=== PATIENT | female | born 1935 | race Caucasian/White ===

== ENCOUNTER 2016-11-10 12:16 | Inpatient (IN) ==
[2016-11-10] MEDS ORDERED: 0.9 % Sodium Chloride 1,000 ML IVC ONE (12:23)
--- NOTE | 2016-11-10 12:43 | Emergency Department Note ---
Disposition Clinical Impression: Dysphagia Qualifiers: Dysphagia type: unspecified Qualified Code(s): R13.10 - Dysphagia, unspecified Disposition: Admitted As Inpatient Condition: Good Referrals: Jose Shepherd DO [Primary Care Provider] - Forms: Work/School Release, ED Satisfaction Letter General Adult HPI - General Chief complaint: ED General Medical Stated complaint: dysphagia Time Seen by Provider: 11/10/16 12:19 Source: EMS Mode of arrival: EMS Limitations: no limitations Nursing Notes Reviewed: Yes Vital Signs Reviewed: Yes - History of Present Illness HPI Narrative: 81-year-old female presents to the ER with a chief complaint of dysphagia. Patient reports that for the last 3 weeks the nursing facility she has been unable to keep solids. Report from there shows that she has also pounds in the last 3 weeks. They also report decreased urine output and that for the last 2 days she has been unable to take her medications. Patient reports that the last thing she ate was yesterday evening. Reports that she is now choking on liquids. Reports a history of esophageal stricture in the past requiring dilation roughly 1-1/2 years ago. Patient was unable to be seen by her GI for the next 4-6 weeks. Sent to the ER for evaluation. Pt Subjective Complaint: Dysphagia Onset (ago): week(s) (3) Radiation: non-radiation Pain Scale: 0 Improves with: nothing Worsens with: nothing Associated symptoms: Reports: denies other symptoms Treatments Prior to Arrival: none - Related Data Home Medications Medication Instructions Recorded Confirmed Atenolol [Tenormin] 25 mg PO TID 11/10/16 11/10/16 Atorvastatin Calcium [Lipitor] 20 mg PO DAILY 11/10/16 11/10/16 Baclofen [Lioresal] 10 mg PO BID 11/10/16 11/10/16 Citalopram [CeleXA] 20 mg PO DAILY 11/10/16 11/10/16 Clopidogrel [Plavix] 75 mg PO DAILY 11/10/16 11/10/16 Dextran 70/Hypromellose 1 drop BOTH EYES BID 11/10/16 11/10/16 [Artificial Tears] Docusate Sodium [Dok] 100 mg PO BID PRN 11/10/16 11/10/16 HYDROcodone/Acet 5/325 mg [[place] 1 tab PO 1300 PRN 11/10/16 11/10/16 5-325 mg] Hydrochlorothiazide 25 mg PO DAILY 11/10/16 11/10/16 LORazepam [Ativan] 0.5 mg PO DAILY 11/10/16 11/10/16 Lacri-Lube [Lacri-lube] 1 appl LEFT EYE HS 11/10/16 11/10/16 Losartan Potassium [Cozaar] 100 mg PO DAILY 11/10/16 11/10/16 Potassium Chloride [Klor-Con 10] 10 meq PO DAILY 11/10/16 11/10/16 Ranitidine HCl [Acid Senior Report Developer] 150 mg PO DAILY 11/10/16 11/10/16 Allergies Allergy/AdvReac Type Severity Reaction Status Date / Time No Known Allergies Allergy Verified 11/10/16 14:45 All systems ED: reviewed and negative except as stated. Constitutional: Denies: fever ENT ED: Reports: dysphagia Cardiovascular: Denies: chest pain Respiratory: Denies: cough, dyspnea Gastrointestinal: Denies: abdominal pain, nausea, vomiting, diarrhea Past Medical History - Past Medical History Attestation: Yes The following information was validated with the patient. Source: patient Medical history: Reports: CVA, hypertension Surgical history: Reports: non-contributory - Social History Smoking Status: Former smoker Smokeless Tobacco Status: No Alcohol use: Reports: none Drug use: Reports: none Physical Exam - General Limitations: no limitations General appearance: alert, in no apparent distress - Head Head exam: atraumatic, normocephalic, normal inspection - Eye Eye exam: Present: normal appearance, PERRL, EOMI - ENT ENT exam: normal exam, normal oropharynx, mucous membranes dry - Expanded ENT Exam External ear exam: Present: normal external inspection Mouth exam: Present: normal external inspection Teeth exam: Present: normal inspection Throat exam: Present: normal inspection - Neck Neck exam: Present: normal inspection, full ROM, trachea midline - Chest Chest inspection: Present: normal inspection, symmetric chest wall rise - Respiratory Respiratory exam: Present: normal lung sounds bilaterally - Cardiovascular Cardiovascular exam: Present: regular rate, normal rhythm, normal heart sounds - Abdominal Exam Abdominal exam: Present: soft, Non-Tender. Absent: tenderness, guarding, rigidity - Extremities Exam Extremities exam: Present: normal inspection, full ROM - Expanded Upper Extremity Exam Shoulder exam: Present: normal inspection, full ROM Arm exam: Present: normal inspection, full ROM Elbow exam: Present: normal inspection, full ROM Forearm/Wrist exam: Present: normal inspection, full ROM Hand exam: Present: normal inspection, full ROM - Expanded Lower Extremity Exam Hip/Pelvis exam: Present: normal inspection, full ROM Upper leg exam: Present: normal inspection, full ROM Knee exam: Present: normal inspection, full ROM Lower leg exam: Present: normal inspection, full ROM Ankle exam: Present: normal inspection, full ROM Foot/toe exam: Present: normal inspection, full ROM - Back Exam Back exam: Present: normal inspection - Neurological Exam Neurological exam: Present: alert - Expanded Neurological Exam Coma Scale Eye Opening: Spontaneous Coma Scale Motor Response: Obeys Commands Coma Scale Verbal Response: Oriented Coma Scale Total: 15 - Psychiatric Psychiatric exam: Present: normal affect, normal mood - Skin Skin exam: Present: warm, dry, intact, normal color Course Course Narrative: Patient seen and examined. Vital signs reviewed. She appears dry on exam. We will get some basic labs and give her some IV fluids. Disposition pending. - Consultations Consultation #1: I spoke with with the on-call clinical rehab liaison concerning this patient. Patient is being admitted to the hospitalist service. Vital Signs Temperature 0 F L 11/10/16 12:20 Pulse Rate 64 11/10/16 12:20 Respiratory Rate 12 11/10/16 12:20 Blood Pressure 236/85 11/10/16 12:20 O2 Sat by Pulse Oximetry 96 11/10/16 12:20 Temperature 0 F L 11/10/16 12:20 Pulse Rate 68 11/10/16 16:09 Respiratory Rate 12 11/10/16 16:09 Blood Pressure 194/59 11/10/16 16:09 O2 Sat by Pulse Oximetry 94 L 11/10/16 16:09 Oxygen Delivery Oxygen Delivery Room Air Medical Decision Making - MDM Narrative Medical decision making narrative: 81-year-old female presents to the ER due to decreased oral intake, dysphagia and weight loss. History of esophageal strictures in the past requiring dilation. She appears dry on exam with a slight hyponatremia of 147. Patient was started on IV fluids and GI was consulted in the ER and patient admitted to the hospitalist service. - Lab Data Lab results reviewed: Yes I reviewed the patient's lab results. Result diagrams: 11/10/16 13:17 11/10/16 13:17 Lab Results 0311/10/16 11/10/16 Range/Units 13:17 13:17 13:17 WBC 6.6 (4.3-11.1) K/mcL RBC 4.09 (3.82-4.97) M/mcL Hgb 12.5 (11.5-15.4) g/dL Hct 37.8 (35.3-44.9) % MCV 92.4 (83.0-100.0) fL MCH 30.6 (28.0-33.3) pg MCHC 33.1 (31.6-35.5) g/dL RDW 12.9 (11.5-14.5) % Plt Count 138 L (140-400) K/mcL MPV 11.9 (9.4-12.4) fL Immature Gran % 0.8 (0-4) % Seg Neutrophils % 80.7 % Lymphocytes % 10.6 % Monocytes % 6.5 % Eosinophils % 1.2 % Basophils % 0.2 % Neutrophils # 5.3 (1.6-8.9) K/mcL Lymphocytes # 0.7 (0.6-4.6) K/mcL Monocytes # 0.4 (0.0-1.3) K/mcL Eosinophils # 0.1 (0.0-0.6) K/mcL Basophils # 0.0 (0.0-0.2) K/mcL Immature Plt Fraction 10.1 H (1.1-6.1) % PT 12.4 H (9.4-12.1) Seconds INR 1.1 Sodium 147 H (136-145) mEq/L Potassium 4.1 (3.5-4.5) mEq/L Chloride 110 H (98-109) mEq/L Carbon Dioxide 30 H (19-29) mEq/L BUN 27 H (7-20) mg/dL Creatinine 0.93 (0.57-1.11) mg/dL Est GFR ( Amer) > 60 (> 60) Est GFR (Non-Af Amer) 58 L (> 60) BUN/Creatinine Ratio 29 H (6-26) Glucose 101 H (70-99) mg/dL Calculated Osmolality 309 H (280-300) Calcium 8.9 (8.6-10.8) mg/dL Urine Color (Yellow) Urine Clarity (Clear) Urine pH (5.0-8.0) pH Units Ur Specific [place] (1.010-1.025) Urine Protein (Neg-Trace) mg/dL Urine Glucose (UA) (Normal) mg/dL Urine Ketones (Negative) mg/dL Urine Blood (Negative) Urine Nitrite (Negative) Urine Bilirubin (Negative) Urine Urobilinogen (Normal) mg/dL Ur Leukocyte Esterase (Negative) Urine Microscopic RBC (0-3) per hpf Urine Microscopic WBC (0-3) per hpf Ur Squamous Epith Cells (None-Few) per lpf Urine Bacteria (None-Few) per hpf Ur Culture Indicated? (NO) 11/10/16 Range/Units 13:57 WBC (4.3-11.1) K/mcL RBC (3.82-4.97) M/mcL Hgb (11.5-15.4) g/dL Hct (35.3-44.9) % MCV (83.0-100.0) fL MCH (28.0-33.3) pg MCHC (31.6-35.5) g/dL RDW (11.5-14.5) % Plt Count (140-400) K/mcL MPV (9.4-12.4) fL Immature Gran % (0-4) % Seg Neutrophils % % Lymphocytes % % Monocytes % % Eosinophils % % Basophils % % Neutrophils # (1.6-8.9) K/mcL Lymphocytes # (0.6-4.6) K/mcL Monocytes # (0.0-1.3) K/mcL Eosinophils # (0.0-0.6) K/mcL Basophils # (0.0-0.2) K/mcL Immature Plt Fraction (1.1-6.1) % PT (9.4-12.1) Seconds INR Sodium (136-145) mEq/L Potassium (3.5-4.5) mEq/L Chloride (98-109) mEq/L Carbon Dioxide (19-29) mEq/L BUN (7-20) mg/dL Creatinine (0.57-1.11) mg/dL Est GFR ( Amer) (> 60) Est GFR (Non-Af Amer) (> 60) BUN/Creatinine Ratio (6-26) Glucose (70-99) mg/dL Calculated Osmolality (280-300) Calcium (8.6-10.8) mg/dL Urine Color Yellow (Yellow) Urine Clarity Clear (Clear) Urine pH 6.0 (5.0-8.0) pH Units Ur Specific [place] 1.019 (1.010-1.025) Urine Protein Negative (Neg-Trace) mg/dL Urine Glucose (UA) Normal (Normal) mg/dL Urine Ketones Trace H (Negative) mg/dL Urine Blood Small H (Negative) Urine Nitrite Negative (Negative) Urine Bilirubin Negative (Negative) Urine Urobilinogen Normal (Normal) mg/dL Ur Leukocyte Esterase Negative (Negative) Urine Microscopic RBC 0-3 (0-3) per hpf Urine Microscopic WBC 0-3 (0-3) per hpf Ur Squamous Epith Cells Few (None-Few) per lpf Urine Bacteria Few (None-Few) per hpf Ur Culture Indicated? NO (NO) S.B.A.R. - S.B.A.David Situation: Demographics, MOA Background: Presenting Complaint, Relevant PMH, Meds, & Allergies Assessment: Vital Signs, Course and respsone to treatment, Exam Concerns, Patient/Family Expectation, Pertinant Lab Results, Outstanding Labs Recommendation: Barrier(s) to disposition, Recommendation based on pending studies, treatments, or consults S.B.A.RLindsey Report Given to: Prachi WillisBLeory Repor Time: 16:29 Attestation Statement - Attestation Attestation: Patient was seen with resident physician. I reviewed the history, physical, assessment and plan, and agree with the findings. I also personally evaluated this patient and had [id number] time with this patient. 81-year-old female presents [facility] the emergency department from [facility] with chief complaint of cannot hear drink. Basically patient's loss proximal 17 pounds in the last 2 weeks or so. She has a history of esophageal stricture and states that she has had trouble swallowing solids and now liquids. She really just cannot get anything down which is prompted her trip to the emergency department today she denies nausea vomiting or diarrhea just weight loss and she says she feels dehydrated. Denies other complaints at this time. On examination vital signs unremarkable. ENT patient appears dehydrated with dry mucous membranes. Heart regular rhythm and rate. Lungs clear abdomen soft and nontender. Extremities are unremarkable. Neurologically patient is intact. We will check basic labs and rehydrate patient and will get admitted for IV hydration and GI evaluation with possible stricture treatment. Hospitalist will be notified once labs are back. Agree with resident physician assessment and plan.
[2016-11-10 13:23] LABS: Basophils % 0.2 %; Eosinophils # 0.1 K/mcL (0.0-0.6); Eosinophils % 1.2 %; Hematocrit 37.8 % (35.3-44.9); Hemoglobin 12.5 g/dL (11.5-15.4); Immature Granulocytes % 0.8 % (0-4); Immature Platelets 10.1 % (1.1-6.1); Lymphocytes # 0.7 K/mcL (0.6-4.6); Lymphocytes % 10.6 %; Mean Corpuscular HGB Conc 33.1 g/dL (31.6-35.5); Mean Corpuscular Hemoglobin 30.6 pg (28.0-33.3); Mean Corpuscular Volume 92.4 fL (83.0-100.0); Mean Platelet Volume 11.9 fL (9.4-12.4); Monocytes # 0.4 K/mcL (0.0-1.3); Monocytes % 6.5 %; Neutrophils # 5.3 K/mcL (1.6-8.9); Platelet Count 138 K/mcL (140-400); Red Blood Count 4.09 M/mcL (3.82-4.97); Red Cell Distribution Width 12.9 % (11.5-14.5); Segmented Neutrophils % 80.7 %
[2016-11-10 13:31] LABS: INR 1.1; Prothrombin Time 12.4 Seconds (9.4-12.1)
[2016-11-10 13:35] LABS: BUN/Creatinine Ratio 29 (6-26); Blood Urea Nitrogen 27 mg/dL (7-20); Calcium 8.9 mg/dL (8.6-10.8); Carbon Dioxide 30 mEq/L (19-29); Chloride 110 mEq/L (98-109); Glucose 101 mg/dL (70-99); Osmolality,Calculated 309 (280-300); Potassium 4.1 mEq/L (3.5-4.5); Sodium 147 mEq/L (136-145); eGFR For African Americans > 60 (> 60); eGFR For Non-African Americans 58 (> 60)
[2016-11-10 14:05] LABS: Bilirubin,Urine Negative (Negative); Blood,Urine Small (Negative); Clarity,Urine Clear (Clear); Color,Urine Yellow (Yellow); Glucose,Urine (UA) Normal (Normal); Ketones,Urine Trace mg/dL (Negative); Leukocyte Esterase,Urine Negative (Negative); Nitrite,Urine Negative (Negative); Protein,Urine Negative (Neg-Trace); Specific Gravity,Urine 1.019 (1.010-1.025); Urobilinogen,Urine Normal (Normal)
[2016-11-10 14:06] LABS: Bacteria,Urine Few per hpf (None-Few); RBC,Urine 0-3 per hpf (0-3); Squamous Epithelial Cell,Urine Few per lpf (None-Few); WBC,Urine 0-3 per hpf (0-3)
[2016-11-10] MEDS ORDERED: Ondansetron 4 MG/2 ML VIAL IVP PRN (20:37)
[2016-11-10] MEDS ORDERED: Naloxone 0.4 MG/ML INJ IVP PRN (20:37)
--- NOTE | 2016-11-10 20:37 | Internal Med History&Physical ---
Date of Encounter: 11/10/16 Time of Encounter: 20:15 Assessment and Plan (1) History of esophageal stricture Current visit: Yes Status: Acute Patient has history of esophageal strictures, having undergone 2 prior esophageal dilations with Dr. Kent. Current dysphagia and inability to swallow likely due to return of esophageal stricture. Nothing by mouth GI prophylaxis with pantoprazole and patient able to take home ranitidine Zofran as needed for nausea Dr. Kent has been consulted by ER for assistance in management of patient dysphagia (2) Dehydration Current visit: Yes Status: Acute Patient dehydration due to decreased by mouth intake over the past few days, given 1 L fluid in the emergency department, will continue normal saline at 100 mL an hour Allow patient to take by mouth when able (3) Hypertension Current visit: Yes Status: Acute Patient on several antihypertensive medications including atenolol, losartan, and hydrochlorothiazide but has been unable take medications last few days because of dysphagia and difficulty swallowing. Has been having extremely high blood pressures while in hospital. We will hold patient's oral antihypertensive medications until dysphagia resolved 5 mg hydralazine IV when necessary for systolic blood pressure above 190 until patient able to take better by mouth Qualifiers: Hypertension type: essential hypertension Qualified Code(s): I10 - Essential (primary) hypertension (4) Dysphagia Current visit: Yes Status: Acute Patient dysphagia from esophageal strictures Plan as above Qualifiers: Dysphagia type: unspecified Qualified Code(s): R13.10 - Dysphagia, unspecified (5) History of CVA (cerebrovascular accident) Current visit: Yes Status: Acute Patient has residual left-sided weakness and contractures No acute deficits at this time (6) DVT prophylaxis Current visit: Yes Status: Acute Patient placed on 5000 units heparin 3 times a day Internal Medicine - H&P: HPI Chief complaint: Progressive difficulty swallowing for 3 weeks Admitted From: Long-term Nursing Facility Plans for Post Hospital Care: Transfer [facility] History of present illness: Ms. Uriostegui is a 81 year old female with significant medical history for esophageal strictures (w/ 2 prior dilations, last one 2 years ago), prior CVA ( residual left sided paresis, htn, and DVT who was brought to [facility] because she has been having increased dysphagia for 3 weeks. She states that it began 3 weeks ago with some discomfort with swallowing and has progressed to being unable to swallow solid foods. She states that when she tries, she has some discomfort and immediate regurgitation of the food. She denies stomach contents or acid being present in her regurgitation. She states that she is still able to drink milk-shakes, but does not want to drink water because it makes her nauseous. She states that she has had a 30 lb weight loss in the past 3 weeks. She does report some photophobia, but did have very elevated blood pressures at presentation (likely due to not being able to take her medications) that improved with fluids. She denies feeling ill, fever/chills, confusion, abdominal pain, diarrhea, constipation, chest pain, weakness (other than her residual weakness from the CVA), headaches, hematachezia, melena, neck pain, dyuria, or hemauria. Past Med Surg Social Fam HX - Past Medical History Medical history: CVA, hypertension Psychiatric history: no psych history - Past Surgical History Surgical History: non-contributory - Social History Smoking Status: Former smoker Smokeless Tobacco Status: No Alcohol use: none Drug use: none - Family History Father Living Status: Hx Family Cancer: Yes (lung) Sister Living Status: Hx Family Cancer: Yes (breast) Internal Medicine - H&P: Meds Atenolol [Tenormin] 25 mg PO TID 11/10/16 [History] Atorvastatin Calcium [Lipitor] 20 mg PO DAILY 11/10/16 [History] Baclofen [Lioresal] 10 mg PO BID 11/10/16 [History] Citalopram [CeleXA] 20 mg PO DAILY 11/10/16 [History] Clopidogrel [Plavix] 75 mg PO DAILY 11/10/16 [History] Dextran 70/Hypromellose [Artificial Tears] 1 drop BOTH EYES BID 11/10/16 [ History] Docusate Sodium [Dok] 100 mg PO BID PRN 11/10/16 [History] HYDROcodone/Acet 5/325 mg [[place] 5-325 mg] 1 tab PO 1300 PRN 11/10/16 [History] Hydrochlorothiazide 25 mg PO DAILY 11/10/16 [History] LORazepam [Ativan] 0.5 mg PO DAILY 11/10/16 [History] Lacri-Lube [Lacri-lube] 1 appl LEFT EYE HS 11/10/16 [History] Losartan Potassium [Cozaar] 100 mg PO DAILY 11/10/16 [History] Potassium Chloride [Klor-Con 10] 10 meq PO DAILY 11/10/16 [History] Ranitidine HCl [Acid Fruit Or Nut Picker] 150 mg PO DAILY 11/10/16 [History] Allergies No Known Allergies Allergy (Verified 11/10/16 14:45) - Constitutional Constitutional: weight loss, no chills, no fatigue, no fever(s), no night sweats , no weakness - EENT Eyes: photophobia, no change in vision, no diplopia, no discharge, no pain Nose, mouth and throat: as per HPI, dry mouth, dysphagia, no nasal discharge, no neck pain, no sore throat - Cardiovascular Cardiovascular ROS IM: no chest pain, no diaphoresis, no dyspnea, no lightheadedness, no palpitations, no syncope - Respiratory Respiratory: no cough, no dyspnea, no wheezing, no excessive phlegm production - Gastrointestinal Gastrointestinal: as per HPI, dysphagia, vomiting (regurgitation), no abdominal pain, no constipation, no diarrhea, no hematemesis, no hematochezia, no melena, no nausea - Genitourinary Genitourinary: no change in urinary stream, no dysuria, no flank pain, no hematuria - Musculoskeletal Musculoskeletal ROS IM: muscle weakness (from residul CVA), no numbness, no tingling - Integumentary Integumentary IM: no rash, no unusual bruising - Neurological Neurological ROS: focal weakness (from residual CVA), no confusion, no convulsions, no numbness, no tingling, no tremor(s) - Hematologic/Lymphatic Hematologic/Lymphatic: no easy bruising - Constitutional Vitals: Temp Pulse Resp BP Pulse Ox 98.7 F 70 18 120/68 94 L 11/10/16 19:36 11/10/16 19:36 11/10/16 19:36 11/10/16 19:36 11/10/16 19:36 Exam: General: Cooperative, pleasant, no acute distress, alert and oriented 3, answers questions appropriately Head: Normocephalic, atraumatic Eye: Conjunctiva pink, sclera anicteric, EOMI, PERRL Neck: Supple, trachea midline, mucosa dry Respiratory: No accessory muscle usage, clear to auscultation bilaterally, no wheezes/rhonchi/rales appreciated Cardiovascular: Regular rate and rhythm, S1 and S2 present, no murmurs/rubs/ gallops/clicks appreciated GI/abdominal: Nondistended, nontender, soft, normal bowel sounds, no peritoneal signs Extremities: No calf tenderness, noncyanotic, no pedal edema appreciated, warm, lower extremity pulses palpable and symmetrical, left extremities contracted from prior CVA Neurological: Alert and oriented 3, mild left-sided facial droop, 3/5 strength in left lower extremity, 4/5 strength in left upper extremity, chronic contractures in left extremities Skin: Dry, intact, normal color Internal Med - H&P Results - Labs CBC & Chem 7: 11/10/16 13:17 11/10/16 13:17 - Impressions Impressions Chest X-Ray 11/11/16 01:03 IMPRESSION: 1. No active pulmonary disease. 2. Stable cardiomegaly without overt failure. D/ / Celio Diego MD / Celio Diego MD Interpreting Provider: Celio Diego MD
[2016-11-10] MEDS: 0.9 % Sodium Chloride 1,000 ML IVC SCH (22:07)
[2016-11-10] MEDS: *HR* Heparin 5,000 UNIT/ML VIAL SQ SCH (22:08)
[2016-11-11] MEDS: *HR* Heparin 5,000 UNIT/ML VIAL SQ SCH ×3 (05:06→20:18)
[2016-11-11] MEDS ORDERED: Pantoprazole 40 MG VIAL IVP SCH (06:30)
[2016-11-11 07:21] LABS: Basophils % 0.3 %; Eosinophils # 0.1 K/mcL (0.0-0.6); Eosinophils % 1.7 %; Hematocrit 40.1 % (35.3-44.9); Hemoglobin 13.3 g/dL (11.5-15.4); Immature Granulocytes % 0.9 % (0-4); Lymphocytes # 0.8 K/mcL (0.6-4.6); Mean Corpuscular HGB Conc 33.2 g/dL (31.6-35.5); Mean Corpuscular Hemoglobin 30.6 pg (28.0-33.3); Mean Corpuscular Volume 92.4 fL (83.0-100.0); Monocytes # 0.4 K/mcL (0.0-1.3); Monocytes % 5.8 %; Neutrophils # 6.2 K/mcL (1.6-8.9); Platelet Count 131 K/mcL (140-400); Red Blood Count 4.34 M/mcL (3.82-4.97); Red Cell Distribution Width 12.9 % (11.5-14.5); Segmented Neutrophils % 80.3 %
[2016-11-11 07:47] LABS: Alanine Aminotransferase 12 Units/L (0-55); Albumin 3.3 g/dL (3.5-5.0); Albumin/Globulin Ratio 1.1 (1.1-2.2); Alkaline Phosphatase 50 Units/L (38-126); Aspartate Amino Transferase 21 Units/L (5-34); BUN/Creatinine Ratio 25 (6-26); Blood Urea Nitrogen 19 mg/dL (7-20); Calcium 8.5 mg/dL (8.6-10.8); Carbon Dioxide 24 mEq/L (19-29); Chloride 109 mEq/L (98-109); Glucose 100 mg/dL (70-99); Magnesium 0.8 mg/dL (1.6-2.6); Osmolality,Calculated 300 (280-300); Phosphorous 2.3 mg/dL (2.3-4.7); Potassium 3.3 mEq/L (3.5-4.5); Sodium 144 mEq/L (136-145); Total Protein 6.3 g/dL (6.0-8.3); eGFR For African Americans > 60 (> 60); eGFR For Non-African Americans > 60 (> 60)
[2016-11-11] MEDS: 0.9 % Sodium Chloride 1,000 ML IVC SCH ×2 (09:37→20:19)
--- NOTE | 2016-11-11 11:23 | Gastroenterology Consult Note ---
<Wiliam Brock Veto - Last Filed: 11/11/16 11:21> Date of Encounter: 11/11/16 Time of Encounter: 10:00 - Assessment and plan (1) Dysphagia Current Visit: Yes Status: Acute Assessment and plan: Likely secondary to esophageal stricture. Plan for EGD with possible dilation. Keep NPO. Qualifiers: Dysphagia type: unspecified Qualified Code(s): R13.10 - Dysphagia, unspecified (2) History of esophageal stricture Current Visit: Yes Status: Acute Assessment and plan: Last EGD 01/29/[address] Kent with emperic dilation with mild resistance at 54 Fr. (3) History of CVA (cerebrovascular accident) Current Visit: Yes Status: Acute - Time Spent With Patient Total time spent is greater than 50% in coordination of care (as documented) at patient's floor/unit and/or counseling patient: GI History of Present Illness - Data of Consult Patient: known to practice within the last 3 years Consult date: 11/11/16 Requesting Physician: Chaim Callahan DO - Consult Narrative Reason for consult: dysphagia History of present illness: Ms. Uriostegui is a 81 year old female with PMHx of CVA, HTN, and esophageal strictures (2 prior dilations, last one 2 years ago) who was brought to the ED with dysphagia with solids for the past 3 weeks. She states she is unable to swallow solids, when she tries she has discomfort and immediate reguritation of the food. She is not having difficulties with liquids. She denies fever, chills , chest pain, abdominal pain, constipation, diarrhea, melena, or hematochezia. Procedures: EGD 01/29/2015 Dr. Kent: Emperic dilation with mild resistance at 54 Fr. NSAIDs: None Anticoagulation: Plavix Past Med Surg Social Fam HX - Past Medical History Medical history: CVA, hypertension Psychiatric history: no psych history - Past Surgical History Surgical History: non-contributory - Social History Smoking Status: Former smoker Smokeless Tobacco Status: No Alcohol use: none Drug use: none - Family History Father Living Status: Hx Family Cancer: Yes (lung) Sister Living Status: Hx Family Cancer: Yes (breast) - Gastrointestinal Gastrointestinal: Present: as per HPI - Constitutional Constitutional: as per HPI - EENT Eyes: as per HPI Ears: Present: as per HPI Nose, mouth and throat: Present: as per HPI - Cardiovascular Cardiovascular ROS: Present: as per HPI - Respiratory Respiratory IM: Present: as per HPI - Genitourinary Genitourinary: Absent: change in color, Urinary frequency - Neurological ROS Neurological GI: Present: as per HPI - Hematologic/Lymphatic Hematologic/Lymphatic pediatric: Present: as per HPI - Musculoskeletal Musculoskeletal ROS GI: Present: as per HPI - Integumentary Integumentary GI: Present: as per HPI - Psychiatric ROS Psychiatric GI: Present: as per HPI - Endocrine Endocrine IM: Present: as per HPI - Constitutional Vitals: Temp Pulse Resp BP Pulse Ox 98.2 F 73 17 180/98 95 11/11/16 10:00 11/11/16 10:00 11/11/16 10:00 11/11/16 10:00 11/11/16 10:00 General appearance: Present: cooperative, A&O X 3, no acute distress, answers questions appropriately - Head Head exam: Present: atraumatic, normocephalic - Eye Eye exam: Present: normal appearance, sclera anicteric - ENT ENT exam: Present: mucous membranes dry - Neck Neck exam general surgery: Present: normal inspection, trachea midline - Respiratory Respiratory exam: Present: CTAB. Absent: rales, rhonchi - Cardiovascular Cardiovascular exam: Present: RRR, +S1, +S2 - GI/Abdominal GI/Abdominal exam: Present: soft, no peritoneal signs. Absent: distended, firm , guarding, tenderness - Rectal Rectal exam: Present: deferred - Extremities Exam Extremities exam: Present: warm - Neurological Exam Neurological exam: Present: no focal deficits - Psychiatric Psychiatric exam: Present: normal affect, normal mood - Skin Skin exam: Present: dry, intact, normal color, warm Results - Labs CBC & Chem 7: 11/11/16 06:49 11/11/16 06:49 Labs: Last Result Calcium 8.5 mg/dL (8.6-10.8) L 11/11/16 06:49 Entire Visit Hgb 13.3 g/dL (11.5-15.4) 11/11/16 06:49 Hct 40.1 % (35.3-44.9) 11/11/16 06:49 PT 12.4 Seconds (9.4-12.1) H 11/10/16 13:17 Total Bilirubin 1.0 mg/dL (0.2-1.2) 11/11/16 06:49 AST 21 Units/L (5-34) 11/11/16 06:49 ALT 12 Units/L (0-55) 11/11/16 06:49 - ABG ABG results: PT/INR, D-dimer PT 12.4 Seconds (9.4-12.1) H 11/10/16 13:17 - Impressions Impressions Chest X-Ray 11/11/16 01:03 IMPRESSION: 1. No active pulmonary disease. 2. Stable cardiomegaly without overt failure. D/ / Celio Diego MD / Celio Diego MD Interpreting Provider: Celio Diego MD Consult Discharge Plan - Plan Referrals: Jose Shepherd DO [Primary Care Provider] - (patient will follow up with ECF PCP) <Jarad Kent - Last Filed: 11/11/16 17:57> Time of Encounter: 17:00 - Time Spent With Patient Total time spent is greater than 50% in coordination of care (as documented) at patient's floor/unit and/or counseling patient: GI History of Present Illness - Data of Consult Requesting Physician: Chaim Callahan DO - Consult Narrative History of present illness: Ms. Uriostegui is a 81 year old female - Constitutional Vitals: Temp Pulse Resp BP Pulse Ox 99.3 F 77 16 176/67 95 11/11/16 17:50 11/11/16 17:50 11/11/16 17:50 11/11/16 17:50 11/11/16 17:50 Results - Labs CBC & Chem 7: 11/11/16 06:49 11/11/16 06:49 Labs: Last Result Calcium 8.5 mg/dL (8.6-10.8) L 11/11/16 06:49 Entire Visit Hgb 13.3 g/dL (11.5-15.4) 11/11/16 06:49 Hct 40.1 % (35.3-44.9) 11/11/16 06:49 PT 12.4 Seconds (9.4-12.1) H 11/10/16 13:17 Total Bilirubin 1.0 mg/dL (0.2-1.2) 11/11/16 06:49 AST 21 Units/L (5-34) 11/11/16 06:49 ALT 12 Units/L (0-55) 11/11/16 06:49 - ABG ABG results: PT/INR, D-dimer PT 12.4 Seconds (9.4-12.1) H 11/10/16 13:17 - Impressions Impressions Chest X-Ray 11/11/16 01:03
--- NOTE | 2016-11-11 14:39 | Internal Med Progress Note ---
Date of Encounter: 11/11/16 Time of Encounter: 14:35 - Assessment and plan (1) Dysphagia Current Visit: Yes Status: Acute Assessment and plan: h/o esophageal stricture with dilatation in daria past. scheduled for EGD either today or tomorrow. Currently nothing by mouth for not being able to swallow. We will continue IV fluids for now. We will follow EGD results in GI recommendations. Qualifiers: Dysphagia type: unspecified Qualified Code(s): R13.10 - Dysphagia, unspecified (2) History of esophageal stricture Current Visit: Yes Status: Chronic (3) History of CVA (cerebrovascular accident) Current Visit: Yes Status: Acute (4) Hypertension Current Visit: Yes Status: Acute Assessment and plan: Blood pressure elevated due to not being able to take oral medications. We will add hydralazine 10 mg IV when necessary for systolic blood pressure more than 160. Continue to monitor blood pressure. Qualifiers: Hypertension type: essential hypertension Qualified Code(s): I10 - Essential (primary) hypertension - Time Spent With Patient 25 - 35 minutes - Subjective Interval history: Patient seen at the bedside, admitted for dysphagia. Complaining of difficulty in swallowing, refuses all her by mouth medications. Has a history of esophageal stricture and dilatation in the past. GI has been consulted, planned for EGD today. - Constitutional Vitals: Temp Pulse Resp BP Pulse Ox 98.2 F 73 17 180/98 95 11/11/16 10:00 11/11/16 10:00 11/11/16 10:00 11/11/16 10:00 11/11/16 10:00 General appearance: Present: A&O X 3, no acute distress Exam: General: Cooperative, pleasant, no acute distress, alert and oriented 3, answers questions appropriately Head: Normocephalic, atraumatic Eye: Conjunctiva pink, sclera anicteric, EOMI, PERRL Neck: Supple, trachea midline, mucosa dry Respiratory: No accessory muscle usage, clear to auscultation bilaterally, no wheezes/rhonchi/rales appreciated Cardiovascular: Regular rate and rhythm, S1 and S2 present, no murmurs/rubs/ gallops/clicks appreciated GI/abdominal: Nondistended, nontender, soft, normal bowel sounds, no peritoneal signs Extremities: No calf tenderness, noncyanotic, no pedal edema appreciated, warm, lower extremity pulses palpable and symmetrical, left extremities contracted from prior CVA Neurological: Alert and oriented 3, no focal neuro defecits Skin: Dry, intact, normal color Internal Medicine: Result - Labs CBC & Chem 7: 11/11/16 06:49 11/11/16 06:49 Labs: Short CBC 11/11/16 Range/Units 06:49 WBC 7.7 (4.3-11.1) K/mcL Hgb 13.3 (11.5-15.4) g/dL Hct 40.1 (35.3-44.9) % Plt Count 131 L (140-400) K/mcL Neutrophils # 6.2 (1.6-8.9) K/mcL BMP 11/11/16 06:49 Sodium 144 Potassium 3.3 L Chloride 109 Carbon Dioxide 24 BUN 19 Creatinine 0.76 Glucose 100 H Calcium 8.5 L Liver Function 11/11/16 Range/Units 06:49 Total Bilirubin 1.0 (0.2-1.2) mg/dL AST 21 (5-34) Units/L ALT 12 (0-55) Units/L Alkaline Phosphatase 50 (38-126) Units/L Albumin 3.3 L (3.5-5.0) g/dL - ABG Interpretation ABG results: PT/INR, D-dimer PT 12.4 Seconds (9.4-12.1) H 11/10/16 13:17 - Impressions Impressions Chest X-Ray 11/11/16 01:03 IMPRESSION: 1. No active pulmonary disease. 2. Stable cardiomegaly without overt failure. D/ / Celio Diego MD / Celio Diego MD Interpreting Provider: Celio Diego MD - VTE Reasons for not Prescribing Prophylaxis: Treatment not Indicated - Low risk for VTE Consult Discharge Plan - Plan Referrals: Jose Shepherd DO [Primary Care Provider] - (patient will follow up with ECF PCP)
[2016-11-11] MEDS ORDERED: *HR* Midazolam HCl 5 MG/5 ML VIAL IVP ONE (17:44)
[2016-11-11] MEDS ORDERED: *HR* FentaNYL (PF) 100 MCG/2 ML VIAL ONE (17:45)
[2016-11-11] MEDS ORDERED: *HR* FentaNYL (PF) 100 MCG/2 ML VIAL IVP PRN (17:58)
[2016-11-11] MEDS ORDERED: *HR* Midazolam HCl 5 MG/5 ML VIAL IVP PRN (17:58)
[2016-11-11] MEDS ORDERED: Tetracaine/Benzocaine/Butamben 200MG/SPRAY (100SPY/BOT) MM ONE (17:58)
[2016-11-11] MEDS ORDERED: Simethicone 40 MG/0.6 ML MLS IR ONE (17:58)
[2016-11-11] MEDS ORDERED: 0.9 % Sodium Chloride 1,000 ML IVC SCH (18:15)
[2016-11-11] MEDS: Pantoprazole 40 MG VIAL IVP SCH (20:18)
[2016-11-11] MEDS: Artificial Tears SOLN 15 ML BOTTLE BOTH EYES SCH (20:20)
[2016-11-12] MEDS: *HR* Heparin 5,000 UNIT/ML VIAL SQ SCH ×3 (05:33→22:20)
[2016-11-12] MEDS: 0.9 % Sodium Chloride 1,000 ML IVC SCH ×3 (05:34→18:50)
[2016-11-12] MEDS: Pantoprazole 40 MG VIAL IVP SCH ×2 (05:34→17:15)
[2016-11-12 06:43] LABS: Basophils % 0.1 %; Eosinophils # 0.1 K/mcL (0.0-0.6); Eosinophils % 1.3 %; Hematocrit 38.2 % (35.3-44.9); Hemoglobin 12.3 g/dL (11.5-15.4); Immature Granulocytes % 0.9 % (0-4); Lymphocytes # 0.7 K/mcL (0.6-4.6); Lymphocytes % 9.5 %; Mean Corpuscular HGB Conc 32.2 g/dL (31.6-35.5); Mean Corpuscular Volume 93.2 fL (83.0-100.0); Mean Platelet Volume 12.4 fL (9.4-12.4); Monocytes # 0.5 K/mcL (0.0-1.3); Monocytes % 6.7 %; Neutrophils # 6.3 K/mcL (1.6-8.9); Platelet Count 155 K/mcL (140-400); Red Cell Distribution Width 13.2 % (11.5-14.5); Segmented Neutrophils % 81.5 %
[2016-11-12 06:53] LABS: BUN/Creatinine Ratio 25 (6-26); Blood Urea Nitrogen 19 mg/dL (7-20); Calcium 7.9 mg/dL (8.6-10.8); Carbon Dioxide 20 mEq/L (19-29); Chloride 112 mEq/L (98-109); Glucose 90 mg/dL (70-99); Osmolality,Calculated 302 (280-300); Potassium 3.2 mEq/L (3.5-4.5); Sodium 145 mEq/L (136-145); eGFR For African Americans > 60 (> 60); eGFR For Non-African Americans > 60 (> 60)
[2016-11-12] MEDS: Artificial Tears SOLN 15 ML BOTTLE BOTH EYES SCH ×2 (08:00→22:21)
[2016-11-12] MEDS ORDERED: NON-FORMULARY MEDICATION 1 EACH EACH (Losartan Potassium [Cozaar] 100 MG) PO SCH (09:00)
[2016-11-12] MEDS: *HR* LORazepam 0.5 MG TABLET PO SCH (10:44)
--- NOTE | 2016-11-12 11:36 | Gastroenterology Progress Note ---
<Wiliam Brock - Last Filed: 11/12/16 11:34> Date of Encounter: 11/12/16 Time of Encounter: 09:45 - Assessment and plan (1) Dysphagia Current Visit: Yes Status: Acute Assessment and plan: EGD completed, showed nonbleeding esophageal ulcer, normal stomach. Continue twice a day PPI and Carafate liquid 3 times a day. Plan to continue Carafate for 2 months, and repeat EGD in 2 months. Qualifiers: Dysphagia type: unspecified Qualified Code(s): R13.10 - Dysphagia, unspecified (2) History of esophageal stricture Current Visit: Yes Status: Chronic Assessment and plan: Last EGD 01/29/[address] Kent with emperic dilation with mild resistance at 54 Fr. (3) History of CVA (cerebrovascular accident) Current Visit: Yes Status: Acute - Time Spent With Patient Total time spent is greater than 50% in coordination of care (as documented) at patient's floor/unit and/or counseling patient: - Subjective Interval history: Pt sitting on side of bed. She reports feeling better and is without acute complaint at this time. - Constitutional Vitals: Temp Pulse Resp BP Pulse Ox 97.9 F 80 18 167/67 92 L 11/12/16 07:14 11/12/16 07:14 11/12/16 07:14 11/12/16 07:14 11/12/16 07:14 General appearance: Present: cooperative, A&O X 3, no acute distress, answers questions appropriately - Head Head exam: Present: atraumatic, normocephalic - Eye Eye exam: Present: normal appearance, sclera anicteric - ENT ENT exam: Present: mucous membranes moist - Neck Neck exam general surgery: Present: normal inspection, trachea midline - Respiratory Respiratory exam: Present: CTAB. Absent: rales, rhonchi - Cardiovascular Cardiovascular exam: Present: RRR, +S1, +S2 - GI/Abdominal GI/Abdominal exam: Present: soft, no peritoneal signs. Absent: distended, firm , guarding, tenderness - Rectal Rectal exam: Present: deferred - Extremities Exam Extremities exam: Present: warm - Neurological Exam Neurological exam: Present: no focal deficits - Psychiatric Psychiatric exam: Present: normal affect, normal mood - Skin Skin exam: Present: dry, intact, normal color, warm Results - Labs CBC & Chem 7: 11/12/16 06:12 11/12/16 06:12 Labs: Last Result Calcium 7.9 mg/dL (8.6-10.8) L 11/12/16 06:12 Entire Visit Hgb 12.3 g/dL (11.5-15.4) 11/12/16 06:12 Hct 38.2 % (35.3-44.9) 11/12/16 06:12 PT 12.4 Seconds (9.4-12.1) H 11/10/16 13:17 Total Bilirubin 1.0 mg/dL (0.2-1.2) 11/11/16 06:49 AST 21 Units/L (5-34) 11/11/16 06:49 ALT 12 Units/L (0-55) 11/11/16 06:49 - ABG ABG results: PT/INR, D-dimer PT 12.4 Seconds (9.4-12.1) H 11/10/16 13:17 - Impressions Impressions Chest X-Ray 11/11/16 01:03 IMPRESSION: 1. No active pulmonary disease. 2. Stable cardiomegaly without overt failure. D/ / Celio Diego MD / Celio Diego MD Interpreting Provider: Celio Diego MD - VTE Reasons for not Prescribing Prophylaxis: Treatment not Indicated - Low risk for VTE Consult Discharge Plan - Plan Referrals: Jose Shepherd DO [Primary Care Provider] - (patient will follow up with F PCP) <Jarad Kent - Last Filed: 11/12/16 13:11> Time of Encounter: 12:45 - Time Spent With Patient Total time spent is greater than 50% in coordination of care (as documented) at patient's floor/unit and/or counseling patient: - Constitutional Vitals: Temp Pulse Resp BP Pulse Ox 97.9 F 80 18 167/67 92 L 11/12/16 07:14 11/12/16 07:14 11/12/16 07:14 11/12/16 07:14 11/12/16 07:14 Results - Labs CBC & Chem 7: 11/12/16 06:12 11/12/16 06:12 Labs: Last Result Calcium 7.9 mg/dL (8.6-10.8) L 11/12/16 06:12 Entire Visit Hgb 12.3 g/dL (11.5-15.4) 11/12/16 06:12 Hct 38.2 % (35.3-44.9) 11/12/16 06:12 PT 12.4 Seconds (9.4-12.1) H 11/10/16 13:17 Total Bilirubin 1.0 mg/dL (0.2-1.2) 11/11/16 06:49 AST 21 Units/L (5-34) 11/11/16 06:49 ALT 12 Units/L (0-55) 11/11/16 06:49 - ABG ABG results: PT/INR, D-dimer PT 12.4 Seconds (9.4-12.1) H 11/10/16 13:17 - Impressions Impressions Chest X-Ray 11/11/16 01:03
--- NOTE | 2016-11-12 13:51 | Internal Med Progress Note ---
Date of Encounter: 11/12/16 Time of Encounter: 13:49 - Assessment and plan (1) Dysphagia Current Visit: Yes Status: Acute Assessment and plan: h/o esophageal stricture with dilatation in the past. Status post EGD yesterday which showed nonbleeding esophageal ulcer. Started on PPI q12h and Carafate. GI recommended repeat EGD in 2 months. Have started clear liquid diet today, seems to be doing well. Will advance diet gradually, keep IV fluids for now. Possible discharge tomorrow if symptomatically better. Qualifiers: Dysphagia type: unspecified Qualified Code(s): R13.10 - Dysphagia, unspecified (2) History of esophageal stricture Current Visit: Yes Status: Chronic (3) History of CVA (cerebrovascular accident) Current Visit: Yes Status: Acute (4) Hypertension Current Visit: Yes Status: Acute Assessment and plan: We will restart home BP medications today as she is able to take the pills and the liquid. Monitor blood pressure. Qualifiers: Hypertension type: essential hypertension Qualified Code(s): I10 - Essential (primary) hypertension - Time Spent With Patient 25 - 35 minutes - Subjective Interval history: Patient seen at the bedside, admitted for dysphagia. Has a history of esophageal stricture and dilatation in the past. GI has been consulted, s/p EGD yesterday whichshowed non bleeding esophageal ulcer. still unable to swallow well and has been started on clear liquid diet, seems to be doing okay with clears for now, will continue with IVF for today at least until she can tolerate soft diet. - Constitutional Vitals: Temp Pulse Resp BP Pulse Ox 97.9 F 80 18 167/67 92 L 11/12/16 07:14 11/12/16 07:14 11/12/16 07:14 11/12/16 07:14 11/12/16 07:14 General appearance: Present: A&O X 3, no acute distress Exam: General: Cooperative, pleasant, no acute distress, alert and oriented 3, answers questions appropriately Head: Normocephalic, atraumatic Eye: Conjunctiva pink, sclera anicteric, EOMI, PERRL Neck: Supple, trachea midline, mucosa dry Respiratory: No accessory muscle usage, clear to auscultation bilaterally, no wheezes/rhonchi/rales appreciated Cardiovascular: Regular rate and rhythm, S1 and S2 present, no murmurs/rubs/ gallops/clicks appreciated GI/abdominal: Nondistended, nontender, soft, normal bowel sounds, no peritoneal signs Extremities: No calf tenderness, noncyanotic, no pedal edema appreciated, warm, lower extremity pulses palpable and symmetrical, left extremities contracted from prior CVA Neurological: Alert and oriented 3, no focal neuro defecits Skin: Dry, intact, normal color Internal Medicine: Result - Labs CBC & Chem 7: 11/12/16 06:12 11/12/16 06:12 Labs: Short CBC 11/12/16 Range/Units 06:12 WBC 7.7 (4.3-11.1) K/mcL Hgb 12.3 (11.5-15.4) g/dL Hct 38.2 (35.3-44.9) % Plt Count 155 (140-400) K/mcL Neutrophils # 6.3 (1.6-8.9) K/mcL BMP 11/12/16 06:12 Sodium 145 Potassium 3.2 L Chloride 112 H Carbon Dioxide 20 BUN 19 Creatinine 0.76 Glucose 90 Calcium 7.9 L - ABG Interpretation ABG results: PT/INR, D-dimer PT 12.4 Seconds (9.4-12.1) H 11/10/16 13:17 - Impressions Impressions Chest X-Ray 11/11/16 01:03 IMPRESSION: 1. No active pulmonary disease. 2. Stable cardiomegaly without overt failure. D/ / Celio Diego MD / Celio Diego MD Interpreting Provider: Celio Diego MD - VTE Reasons for not Prescribing Prophylaxis: Treatment not Indicated - Low risk for VTE Consult Discharge Plan - Plan Referrals: Jose Shepherd DO [Primary Care Provider] - (patient will follow up with ECF PCP)
[2016-11-13] MEDS: *HR* Heparin 5,000 UNIT/ML VIAL SQ SCH (05:50)
[2016-11-13] MEDS: 0.9 % Sodium Chloride 1,000 ML IVC SCH (05:51)
[2016-11-13] MEDS: Pantoprazole 40 MG VIAL IVP SCH (05:51)
[2016-11-13 07:18] VITALS: BP 173/62
[2016-11-13] MEDS: *HR* LORazepam 0.5 MG TABLET PO SCH (08:08)
--- NOTE | 2016-11-13 08:41 | Discharge Summary ---
Date of Encounter: 11/12/16 Time of Encounter: 08:38 - Discharge Diagnosis (1) Dysphagia Priority: Primary Status: Acute Qualifiers: Dysphagia type: unspecified Qualified Code(s): R13.10 - Dysphagia, unspecified (2) History of esophageal stricture Priority: Secondary Status: Chronic (3) History of CVA (cerebrovascular accident) Priority: Secondary Status: Acute (4) Hypertension Priority: Secondary Status: Acute Qualifiers: Hypertension type: essential hypertension Qualified Code(s): I10 - Essential (primary) hypertension - Discharge Medications Prescriptions: Pantoprazole Sodium 40 mg PO BID #120 tablet. Sucralfate [Carafate] 1 gm PO TIDAC 60 Days Home Medications: Atenolol [Tenormin] 25 mg PO TID 11/10/16 [History] Atorvastatin Calcium [Lipitor] 20 mg PO DAILY 11/10/16 [History] Baclofen [Lioresal] 10 mg PO BID 11/10/16 [History] Citalopram [CeleXA] 20 mg PO DAILY 11/10/16 [History] Clopidogrel [Plavix] 75 mg PO DAILY 11/10/16 [History] Dextran 70/Hypromellose [Artificial Tears] 1 drop BOTH EYES BID 11/10/16 [ History] Docusate Sodium [Dok] 100 mg PO BID PRN 11/10/16 [History] HYDROcodone/Acet 5/325 mg [[place] 5-325 mg] 1 tab PO 1300 PRN 11/10/16 [History] Hydrochlorothiazide 25 mg PO DAILY 11/10/16 [History] LORazepam [Ativan] 0.5 mg PO DAILY 11/10/16 [History] Lacri-Lube [Lacri-lube] 1 appl LEFT EYE HS 11/10/16 [History] Losartan Potassium [Cozaar] 100 mg PO DAILY 11/10/16 [History] Potassium Chloride [Klor-Con 10] 10 meq PO DAILY 11/10/16 [History] Pantoprazole Sodium 40 mg PO BID #120 tablet. 11/13/16 [Rx] Sucralfate [Carafate] 1 gm PO TIDAC 60 Days 11/13/16 [Rx] Allergies/Adverse Reactions: Allergies No Known Allergies Allergy (Verified 11/10/16 14:45) Date of admission: 11/12/16 20:23 Primary care physician: Jose Shepherd Discharging clinician: Barbara Jorgensen Anticipated date of discharge: 11/13/16 - Patient Status Disposition: Transfer Inpatient Rehab Fac Condition: Good Functional capacity at discharge: independent ambulation Overall status at discharge: patient is back to baseline - Discharge Instructions Follow Up With: Jose Shepherd DO [Primary Care Provider] - (patient will follow up with F PCP) Jarad Kent MD [Partnered Physician] - - Diet and Activity Activity: resume usual activities as tolerated Diet: other (soft diet) Interval History: Ms. Uriostegui is a 81 year old female with significant medical history for esophageal strictures (w/ 2 prior dilations, last one 2 years ago), prior CVA ( residual left sided paresis, htn, and DVT who was brought to [facility] because she has been having increased dysphagia for 3 weeks. She states that it began 3 weeks ago with some discomfort with swallowing and has progressed to being unable to swallow solid foods. GI was consulted. EGD completed, showed nonbleeding esophageal ulcer, normal stomach. biopsies were taken, will Continue twice a day PPI and Carafate liquid 3 times a day. Plan to continue Carafate for 2 months, and repeat EGD in 2 months. she was gradually started on clear liquids which she tolertaed well and was advanced and she is being dc in stable condition today. she was given f/u with [place] Hospital course: Ms. Uriostegui is a 81 year old female Time spent discussing smoking cessation with patient: more than 10 minutes - Time Spent with Patient Total time spent providing and/or coordinating discharge services: Greater than 30 minutes - Constitutional Vitals: Temp Pulse Resp BP Pulse Ox 97.6 F 76 16 173/62 94 L 11/13/16 07:13 11/13/16 07:13 11/13/16 07:13 11/13/16 07:13 11/13/16 07:13 General appearance: Present: A&O X 3, no acute distress Exam: - Head Head exam: Present: atraumatic, normocephalic - Eye Eye exam: Present: normal appearance, sclera anicteric - ENT ENT exam: Present: mucous membranes moist - Neck Neck exam general surgery: Present: normal inspection, trachea midline - Respiratory Respiratory exam: Present: CTAB. Absent: rales, rhonchi - Cardiovascular Cardiovascular exam: Present: RRR, +S1, +S2 - GI/Abdominal GI/Abdominal exam: Present: soft, no peritoneal signs. Absent: distended, firm , guarding, tenderness - Extremities Exam Extremities exam: Present: warm - Neurological Exam Neurological exam: Present: no focal deficits - Psychiatric Psychiatric exam: Present: normal affect, normal mood - Skin Skin exam: Present: dry, intact, normal color, warm - VTE Reasons for not Prescribing Prophylaxis: Treatment not Indicated - Low risk for VTE
--- NOTE | 2016-11-13 08:43 | Physician Discharge Referral ---
ExtendedCare Referral Info Transfer To: F Provider in Charge: terra alan Institutional Level of Care: Intermediate - MR - Diagnosis (1) Dysphagia Status: Acute (2) History of esophageal stricture Status: Chronic (3) History of CVA (cerebrovascular accident) Status: Acute (4) Hypertension Status: Acute - Transfer Medications Prescriptions: Pantoprazole Sodium 40 mg PO BID #120 tablet. Sucralfate [Carafate] 1 gm PO TIDAC 60 Days Home Medications: Atenolol [Tenormin] 25 mg PO TID 11/10/16 [History] Atorvastatin Calcium [Lipitor] 20 mg PO DAILY 11/10/16 [History] Baclofen [Lioresal] 10 mg PO BID 11/10/16 [History] Citalopram [CeleXA] 20 mg PO DAILY 11/10/16 [History] Clopidogrel [Plavix] 75 mg PO DAILY 11/10/16 [History] Dextran 70/Hypromellose [Artificial Tears] 1 drop BOTH EYES BID 11/10/16 [ History] Docusate Sodium [Dok] 100 mg PO BID PRN 11/10/16 [History] HYDROcodone/Acet 5/325 mg [[place] 5-325 mg] 1 tab PO 1300 PRN 11/10/16 [History] Hydrochlorothiazide 25 mg PO DAILY 11/10/16 [History] LORazepam [Ativan] 0.5 mg PO DAILY 11/10/16 [History] Lacri-Lube [Lacri-lube] 1 appl LEFT EYE HS 11/10/16 [History] Losartan Potassium [Cozaar] 100 mg PO DAILY 11/10/16 [History] Potassium Chloride [Klor-Con 10] 10 meq PO DAILY 11/10/16 [History] Pantoprazole Sodium 40 mg PO BID #120 tablet. 11/13/16 [Rx] Sucralfate [Carafate] 1 gm PO TIDAC 60 Days 11/13/16 [Rx] Allergies/Adverse Reactions: Allergies No Known Allergies Allergy (Verified 11/10/16 14:45) - Respiratory Orders Smoking Cessation: Smoking cessation has been advised. For more information, call the [employer] Tobacco Quit Line at 6-395-YPYV-NOW. - Advance Directives Code Status: DNR-Arrest/Don't Intubate - Mobility Orders Chair, Ambulate - Rehabiliation Orders Rehab Potential: Fair Rehab Orders: Evaluation for Physical Therapy, Evaluation for Occupational Therapy - Diet Orders Mechanical Soft CERTIFICATION: I certify that the transfer of the above named patient to an Extended Care Facility is necessary for the continuing treatment of the diagnosis listed. The above information is true and accurate reflection of patient's current condition. Confidential - Redisclosure prohibited without a patient's written consent.
[2016-11-13] MEDS ORDERED: hydroCHLOROthiazide 25 MG TABLET PO SCH (09:00)
[2016-11-13] MEDS: Artificial Tears SOLN 15 ML BOTTLE BOTH EYES SCH (09:18)
== END 2016-11-13 10:46 | DRG 392 ==
LOC: EMEROO 12:16 → 2ANU 12:16 → SUATTDRO 17:25 → 2ANU 18:59
PROVIDERS: ADMIT Nurse Practitioner Family; ATTEND Internal Medicine Endocrinology, Diabetes & Metabolism
PROC: ENDOEBX (2016-11-11 15:00)